=== PATIENT | male | born 1980 | race Caucasian/White ===

== ENCOUNTER 2016-07-31 12:33 | Day surgery (SDC) | payer BC ==
[~2016-07-31] VITALS: Ht 157.5 cm; Wt 69.2 kg
[2016-07-31 13:09] VITALS: Ht 157.5 cm; Wt 69.2 kg
[2016-07-31] MEDS ORDERED: OMEP40CA6 PO (13:25)
[2016-07-31] MEDS ORDERED: TEMA15CA PO (13:25)
[2016-07-31] MEDS ORDERED: LORA1TAB PO (13:25)
[2016-07-31] MEDS ORDERED: DIVA500T7 PO (13:25)
[2016-07-31] MEDS ORDERED: LORA-444 PO (13:25)
[2016-07-31] MEDS ORDERED: DIVA-16 PO (13:25)
[2016-07-31] MEDS ORDERED: PHEN100C PO (13:25)
[2016-07-31] MEDS ORDERED: FLUO20CA38 PO (13:25)
[2016-07-31] MEDS ORDERED: FLUO40CA PO (13:25)
[2016-07-31] MEDS ORDERED: HYDR-2086 PO (13:25)
[2016-07-31] MEDS ORDERED: LIDOCAINE 2% (SDV) 5 ML INJ ONE (13:27)
[2016-07-31] MEDS ORDERED: MIDAZOLAM 1 MG/ML 2 ML INJ ONE (13:27)
[2016-07-31] MEDS ORDERED: PROPOFOL 20 ML ONE (13:27)
[2016-07-31 13:48] VITALS: BP 115/76; PULSE 83; RESP 18
[2016-07-31] MEDS ORDERED: EPHEDrine SULFATE 50 MG/5 ML SYG ONE (14:05)
[2016-07-31 14:37] VITALS: BP 103/68; PULSE 85; RESP 24
--- NOTE | 2016-07-31 17:03 | GILP ---
DATE OF PROCEDURE: 07/31/2016 PROCEDURE PERFORMED: Esophagogastroduodenoscopy with biopsies. BRIEF HISTORY AND INDICATIONS: The patient is being evaluated for abdominal pain, nausea and vomiti ng. PREMEDICATION: Monitored anesthesia care by anesthesiologist. SURGEON: Lexie Muñoz MD INSTRUMENT USED: Olympus panendoscope. TECHNIQUE: After informed consent, with the patient/relatives understanding the procedure, its indic ations, potential risks and complications, including but not limited to: allergic reaction, bleeding , perforation or infection, and after all pertinent questions were answered to the patients satisfac tion, the patient/relatives signed witnessed informed consent. Following this, premedication was ad ministered slowly IV push under careful cardiovascular and respiratory monitoring with pulse oximetr y, automatic blood pressure and independent living advisor. Once the sedative effect was achieved the patient was place in the left lateral decubitus, the panen doscope was introduced and advanced under visual control. Careful examination of the upper gastrointestinal tract, both on insertion as well as withdrawal of the instrument disclosed the following findings: ESOPHAGUS: The distal esophagus shows erythema and edema of the mucosa of a moderate degree and the distal esophagus near the EG junction. STOMACH: Upon entrance to the stomach, air was insufflated, the gastric cote distended normally. The mucosa of the fundus, body and antrum of the stomach was carefully examined, shows erythema and edema of the mucosa of a moderate degree. Biopsies were obtained to rule out H. pylori infection. . PYLORUS: The pylorus appears patent and within normal limits, with no evidence of gastric outlet obs truction. DUODENUM: The duodenal mucosa was carefully examined in the duodenal bulb as well as the second port ion of the duodenum and appears unremarkable with no evidence of duodenitis, ulcer or neoplasm. The instrument was then withdrawn, the patient tolerated the procedure well and was transfer out of the endoscopy suite awake, and in good condition to continue recovery under observation IMPRESSION: 1. Distal esophagitis. 2. Gastritis, rule out Helicobacter pylori infection, biopsies obtained. PLAN: The patient will be continued on present regimen with omeprazole 40 mg. The dose, however, w ill be increased to twice daily. Pathology will be reviewed as soon as available. Further recommen dation will depend on patient's clinical course as well as review of biopsies. Dictated By: LEXIE MUÑOZ MS/JESSE Conf#: [id number] [facility]#: [id number]
== END 2016-07-31 16:23 | disposition home or self-care (01) ==
LOC: GIL 12:33
PROVIDERS: ATTEND Internal Medicine Gastroenterology
DX: K29.50 Unspecified chronic gastritis without bleeding (principal); B96.81 Helicobacter pylori [H. pylori] as the cause of diseases classified elsewhere; K20.9 Esophagitis, unspecified; E78.5 Hyperlipidemia, unspecified; G40.909 Epilepsy, unspecified, not intractable, without status epilepticus
CPT/HCPCS: 43239; 88305; 88312; J2250; Z7610